=== PATIENT | female | born 1990 | race Caucasian/White ===

== ENCOUNTER 2017-04-10 07:34 | Day surgery (SDC) | payer OTHER ==
[~2017-04-10 07:34] MED LIST: Lactated Ringers 1,000 ML IV SCH; Lidocaine 1%/Sod Bicarbonate in NS 8.4% 1 ML Syringe IDERM PRN; Sodium Chloride 0.9% 10 ML Syringe FLUSH PRN
[2017-04-10] MEDS ORDERED: Lidocaine 1% with EPINEPHrine 1:100,000 20 ML MDV ONE (08:36)
[2017-04-10] MEDS ORDERED: Sodium Chloride 0.9% 50 ML SDV ONE (08:36)
--- NOTE | 2017-04-10 08:44 | PCM.PREANE ---
Preanesthetic Assessment - Anesthesia/Transfusion/Family Hx Anesthesia History: No Prior Anesthesia Family History of Anesthesia Reaction: No Transfusion History: No Prior Transfusion(s) - Review of Systems General: No Symptoms Pulmonary: No Symptoms Cardiovascular: No Symptoms Gastrointestinal: No Symptoms Neurological: No Symptoms Other: Reports: None - Physical Assessment NPO Status Date: 04/09/17 NPO Status Time: 21:00 Pulse: 74 O2 Sat by Pulse Oximetry: 100 Respiratory Rate: 16 Blood Pressure: 132/98 Temperature: 36.6 C Vital Signs: Last Vital Signs Temp 36.6 C 04/10/17 07:38 Pulse 74 04/10/17 07:38 Resp 16 04/10/17 07:38 BP 132/98 H 04/10/17 07:38 Pulse Ox 100 04/10/17 07:38 Height: 1.55 m Weight: 63.049 kg Mental Status: Alert & Oriented x3 Airway Class: Mallampati = 1 Dentition: Reports: Normal Dentition, Melstone(s), Implants (bottom right) Thyro-Mental Finger Breadths: 3 Mouth Opening Finger Breadths: 3 ROM/Head Extension: Full Lungs: Clear to Auscultation, Normal Respiratory Effort Cardiovascular: Regular Rate, Regular Rhythm, No Murmurs - Lab Values: Laboratory Last Values Urine HCG, Qual Negative (NEGATIVE) 04/10/17 07:40 - Allergies Allergies/Adverse Reactions: Allergies Allergy/AdvReac Type Severity Reaction Status Date / Time No Known Allergies Allergy Verified 04/10/17 08:18 - Blood Blood Available: No Product(s) Available: None - Anesthesia Plan Pre-Op Medication Ordered: None - Acknowledgements Anesthesia Type Planned: General Anesthesia Pt an Appropriate Candidate for the Planned Anesthesia: Yes Alternatives and Risks of Anesthesia Discussed w Pt/Guardian: Yes Pt/Guardian Understands and Agrees with Anesthesia Plan: Yes PreAnesthesia Questionnaire HEENT History: Reports: Allergic Rhinitis, Impaired Vision Cardiovascular History: Reports: None Respiratory History: Reports: None Gastrointestinal History: Reports: Other (See Below) Other Gastrointestinal History: nausea Genitourinary History: Reports: None 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) Other OB/BYN History: HSIL, severe dysplasia of cervix Musculoskeletal History: Reports: Other (See Below) Other Musculoskeletal History: body aches Neurological History: Reports: None Psychiatric History: Reports: None Endocrine/Metabolic History: Reports: None Hematologic History: Reports: None Immunologic History: Reports: None Oncologic (Cancer) History: Reports: None Dermatologic History: Reports: None - Past Surgical History HEENT Surgical History: Reports: None Cardiovascular Surgical History: Reports: None Respiratory Surgical History: Reports: None GI Surgical History: Reports: None Female Surgical History: Reports: None Male Surgical History: Reports: None Endocrine Surgical History: Reports: None Neurological Surgical History: Reports: None Musculoskeletal Surgical History: Reports: None Oncologic Surgical History: Reports: None Dermatological Surgical History: Reports: None - SUBSTANCE USE Smoking Status *Q: Never Smoker Tobacco Use Within Last Twelve Months: No Second Hand Smoke Exposure: No Days Per Week of Alcohol Use: 1 Number of Drinks Per Day: 1 Total Drinks Per Week: 1 Recreational Drug Use History: No - HOME MEDS Home Medications: Home Meds Cetirizine [ZyrTEC] 10 mg PO DAILY PRN 04/09/17 [History] Fluticasone Propionate [Flonase] 1 spray NASBOTH ASDIRECTED PRN 04/09/17 [ History] Vits #93/Iron Fum/FA [ Formula Tablet] 1 tab PO DAILY 04/09/17 [History] - CURRENT (IN HOUSE) MEDS Current Meds: Current Medications Lactated Ringer's (Ringers, Lactated) 1,000 mls @ 125 mls/hr IV ASDIRECTED ANTONIA Stop: 04/10/17 23:00 Last Admin: 04/10/17 08:01 Dose: 125 mls/hr Lidocaine/Sodium Bicarbonate (Buffered Lidocaine 1% In Ns 8.4%) 0.25 ml IDERM ONETIME PRN PRN Reason: Prior to IV Start Stop: 04/10/17 18:00 Last Admin: 04/10/17 07:58 Dose: 0.25 ml Sodium Chloride (Saline Flush) 10 ml FLUSH ASDIRECTED PRN PRN Reason: Keep Vein Open Stop: 04/10/17 18:00
[2017-04-10] MEDS ORDERED: Propofol 200 MG/20 ML SDV ONE (08:57)
[2017-04-10] MEDS ORDERED: Ondansetron 4 MG/2 ML SDV ONE (08:57)
[2017-04-10] MEDS ORDERED: fentaNYL 250 MCG/5 ML SDV ONE (08:58)
[2017-04-10] MEDS ORDERED: ceFAZolin 1 GM Vial ONE (08:58)
[2017-04-10] MEDS ORDERED: Lidocaine 1% 4 ML ONE (08:58)
[2017-04-10] MEDS ORDERED: Dexamethasone 4 MG/ML SDV ONE (09:27)
[2017-04-10] MEDS ORDERED: Ketorolac 30 MG/ML SDV ONE (09:32)
[2017-04-10] MEDS ORDERED: Lactated Ringers 1,000 ML ONE (09:43)
[2017-04-10] MEDS ORDERED: fentaNYL 100 MCG/2 ML SDV IVPUSH PRN (09:53)
--- NOTE | 2017-04-10 09:54 | PCM.OPNOTE ---
- General Post-Op/Procedure Note Date of Surgery/Procedure: 04/10/17 Operative Procedure(s): Conization of cervix with endocervical biopsy. Hysteroscopy with endometrial biopsy Pre Op Diagnosis: Severe dysplasia of the cervix ([id number]), HSIL Pap Post-Op Diagnosis: Same Anesthesia Technique: General ET Tube Primary Surgeon: Xavier Cárdenas Secondary Surgeon: Nathan Kelley Anesthesia Provider: Emre Aceves Body Joiner: Terence Walker Reason Body Joiner Was Necessary: Assist in surgery, retraction, decrease comorbidity and co-mortality Role of Body Joiner: Assist in surgery, retraction, decrease comorbidity and co-mortality Fluid Replacement, Intraop: 1,000 Output, Urine Amount: 0 EBL in mLs: 3 Drain/Tube Comments:: None Complications: None Condition: Good Free Text/Narrative:: Patient was transported to the operating room and placed in the low dorsal lithotomy position and prepared and draped in a sterile fashion. Timeout performed confirming name, date of and procedure. The cervix was injected with 20 mL of 0.25% lidocaine with epinephrine and multiple confluent areas around the cervix. Sutures were placed at 3:00 and 9:00 to help decrease bleeding utilizing 0 Vicryl. Lugol's staining of the cervix was performed. Utilizing #11 knife blade beginning at 12:00 and proceeding in a clockwise fashion the conization was performed with margins exterior to any decreased staining from Lugol's. The cone biopsy was removed and marked at 12:00 with a suture. Endocervical curettage was performed. All tissue sent to pathology for tissue evaluation. Hemostasis was obtained with electrocautery and application of Monsel's solution. The uterus was sounded to 8 cm dilated to accommodate the hysteroscope and hysteroscopy was performed. Image 001 shows a right tubal ostium image 002 shows the left tubal ostium image 003 shows tissue in the endometrial cavity and this was removed with the curettage. All tissue sent to pathology for tissue evaluation. Hysteroscopy after curettage showed no additional tissue in the endometrial cavity. No polyps, leiomyomata, adhesions or other abnormalities visualized with the hysteroscope. Sponge needle pack instrument count correct 2 and patient transported to postanesthesia care unit in satisfactory condition no blood transfusions required.
--- NOTE | 2017-04-10 09:55 | PCM.POSTAN ---
POST ANESTHESIA ASSESSMENT - MENTAL STATUS Mental Status: Somnolent - VITAL SIGNS Pulse Rate: 85 SaO2: 96 Resp Rate: 13 Blood Pressure: 100/44 Temperature: 37.0 C - RESPIRATORY Respiratory Status: Respiratory Rate WNL, Airway Patent, O2 Saturation Stable, Supplemental Oxygen - CARDIOVASCULAR CV Status: Pulse Rate WNL, Blood Pressure Stable - GASTROINTESTINAL GI Status: No Symptoms - PAIN Pain Score: 0 - POST OP HYDRATION Hydration Status: Adequate & Stable - OBSERVATIONS Free Text/Narrative:: no anesthesia complications noted
== END 2017-04-10 11:05 | disposition home or self-care (01) ==
LOC: JD.SDS 07:34
PROVIDERS: ATTEND Obstetrics & Gynecology
DX: N87.0 Mild cervical dysplasia (principal); N72 Inflammatory disease of cervix uteri; Z79.899 Other long term (current) drug therapy
CPT/HCPCS: 36415; 57522; 81025; 85025; 86850; 86900; 86901; J0690; J1100; J1885; J2405; J3010; J7120; J2704

== ENCOUNTER 2018-03-22 09:12 | Inpatient (IN) | payer OTHER ==
[2018-03-22] MEDS ORDERED: Sodium Chloride 0.9% 10 ML Syringe FLUSH PRN (19:38)
[2018-03-22] MEDS ORDERED: Oxytocin/Lactated Ringers 10 UNIT/1,000 ML BAG IV SCH (19:45)
[2018-03-22] MEDS ORDERED: Lactated Ringers 1,000 ML IV SCH (19:45)
--- NOTE | 2018-03-22 19:59 | PCM.LDHP ---
<Yves Gonzales - Last Filed: 03/22/18 19:27> L&D History of Present Illness - General Date of Service: 03/22/18 Admit Problem/Dx: Induction of Labor. Admission Diagnosis/Problem Admission Diagnosis/Problem 03/22/18 19:27 Source of Information: Patient History Limitations: Reports: No Limitations - History of Present Illness Introduction:: Mariama Gonzalez is a 28-year-old female, , 39 6/7 weeks gestation, dated by ultrasound 11/03/2017, who presents to Labor and Delivery for induction of Labor. Problem list includes prior cone of cervix 09/03/2017, Anemia affecting of 3rd trimester, severe dysplasia of cervix and history of HPV. Labs showed GBS Negative, no history of MRSA. She reports that movement is present, denies leakage of fluid, vaginal bleeding, headaches, visual changes, right upper quadrant pain, active HPV lesions, cough, NVD or urinary complaints. - Related Data Allergies/Adverse Reactions: Allergies Allergy/AdvReac Type Severity Reaction Status Date / Time No Known Allergies Allergy Verified 03/22/18 19:59 Home Medications: Home Meds Cetirizine [ZyrTEC] 10 mg PO DAILY PRN 04/09/17 [History] Fluticasone Propionate [Flonase] 1 spray NASBOTH ASDIRECTED PRN 04/09/17 [ History] Vits #93/Iron Fum/FA [ Formula Tablet] 1 tab PO DAILY 04/09/17 [History] Ibuprofen [Motrin] 600 mg PO Q6H PRN #50 tab 04/10/17 [Rx] Past Medical History HEENT History: Reports: Allergic Rhinitis, Impaired Vision Cardiovascular History: Reports: None Respiratory History: Reports: None Gastrointestinal History: Reports: None, Chronic Constipation, Other (See Below) Other Gastrointestinal History: nausea Genitourinary History: Reports: None 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 , Other (See Below) LMP (Approximate): Other OB/BYN History: HSIL, severe dysplasia of cervix, Prior cone or cervix Musculoskeletal History: Reports: Other (See Below) Other Musculoskeletal History: body aches Neurological History: Reports: None Psychiatric History: Reports: None Endocrine/Metabolic History: Reports: None Hematologic History: Reports: None Immunologic History: Reports: None Oncologic (Cancer) History: Reports: None Dermatologic History: Reports: None - Infectious Disease History Infectious Disease History: Reports: Human Papilloma Virus (HPV) - Past Surgical History HEENT Surgical History: Reports: None Cardiovascular Surgical History: Reports: None Respiratory Surgical History: Reports: None GI Surgical History: Reports: None Female Surgical History: Reports: None Male Surgical History: Reports: None Endocrine Surgical History: Reports: None Neurological Surgical History: Reports: None Musculoskeletal Surgical History: Reports: None Oncologic Surgical History: Reports: None Dermatological Surgical History: Reports: None Social & Family History - Family History Family Medical History: Noncontributory - Caffeine Use Caffeine Use: Reports: Coffee, Tea H&P Review of Systems - Review of Systems: General: Reports: No Symptoms, Chills. Denies: Fever HEENT: Reports: No Symptoms Pulmonary: Reports: No Symptoms. Denies: Shortness of Breath, Wheezing Cardiovascular: Reports: No Symptoms. Denies: Chest Pain Gastrointestinal: Reports: No Symptoms Genitourinary: Reports: No Symptoms Musculoskeletal: Reports: No Symptoms Skin: Reports: No Symptoms Psychiatric: Reports: No Symptoms Neurological: Reports: No Symptoms Hematologic/Lymphatic: Reports: No Symptoms Immunologic: Reports: No Symptoms L&D Exam - Exam Exam: See Below - OB Specific Movement: Active Heart Tones: Present Heart Tones per Min: 135 Heart Rate (FHR) Variability: Moderate (6-25 bmp) - Montano Score Montano Score Cervix Position: Posterior Montano Score Consistency: Firm Montano Score Effacement: 0-30% Montano Score Dilation: Closed Montano Score Infant's Station: -3 Montano Score Total: 0 - Exam General: Alert, Oriented, Cooperative HEENT: Conjunctiva Clear, Hearing Intact, Mucosa Moist & Mazie, Nares Patent, PERRLA Neck: Supple, Trachea Midline Lungs: Clear to Auscultation, Normal Respiratory Effort Cardiovascular: Regular Rate, Regular Rhythm GI/Abdominal Exam: Normal Bowel Sounds, Soft, Non-Tender Extremities: Normal Inspection, Normal Range of Motion, Non-Tender, No Pedal Edema, Normal Capillary Refill Skin: Warm, Dry, Intact Neurological: Normal Gait, Normal Speech Psychiatric: Alert, Normal Affect, Normal Mood <Xavier Cárdenas - Last Filed: 03/23/18 07:23> L&D History of Present Illness - General Admit Problem/Dx: Patient Status Order with Admit Dx/Problem 03/22/18 19:38 Patient Status [ADT] Routine Admission Diagnosis/Problem Admission Diagnosis/Problem H&P Review of Systems - Review of Systems: Review Of Systems: See Below General: Reports: No Symptoms, Chills (no chills) HEENT: Reports: No Symptoms Pulmonary: Reports: No Symptoms Cardiovascular: Reports: No Symptoms Gastrointestinal: Reports: No Symptoms Genitourinary: Reports: No Symptoms Musculoskeletal: Reports: No Symptoms Skin: Reports: No Symptoms Psychiatric: Reports: No Symptoms Neurological: Reports: No Symptoms Hematologic/Lymphatic: Reports: No Symptoms Immunologic: Reports: No Symptoms L&D Exam - Vital Signs Vital Signs: Last Vital Signs Temp 98.2 F 03/22/18 19:38 Pulse 88 03/22/18 19:38 Resp 16 03/22/18 19:38 BP 135/85 03/22/18 19:38 Pulse Ox 99 03/22/18 19:38 - OB Specific Movement: Active Heart Tones: Present Presentation: Vertex - Montano Score Montano Score Cervix Position: Posterior Montano Score Consistency: Soft Montano Score Effacement: 0-30% Montano Score Dilation: Closed Montano Score Infant's Station: -3 Montano Score Total: 2 - Exam General: Alert, Oriented, Cooperative HEENT: Conjunctiva Clear, Hearing Intact, Mucosa Moist & Mazie, Nares Patent Neck: Supple, Trachea Midline Lungs: Clear to Auscultation, Normal Respiratory Effort Cardiovascular: Regular Rate, Regular Rhythm GI/Abdominal Exam: Normal Bowel Sounds, Soft, Non-Tender Genitourinary: Normal external exam Extremities: Normal Inspection, Normal Range of Motion, Non-Tender, No Pedal Edema, Normal Capillary Refill Skin: Warm, Dry, Intact Neurological: Normal Gait, Normal Speech Psychiatric: Alert, Normal Affect, Normal Mood - Patient Data Lab Results Last 24 hrs: Laboratory Results - last 24 hr 03/22/18 03/22/18 Range/Units 22:00 22:00 WBC 10.97 H (3.98-10.04) K/mm3 RBC 3.86 L (3.98-5.22) M/mm3 Hgb 11.2 (11.2-15.7) gm/L Hct 33.1 L (34.1-44.9) % MCV 85.8 (79.4-94.8) fl MCH 29.0 (25.6-32.2) pg MCHC 33.8 (32.2-35.5) g/dl RDW Std Deviation 42.8 (36.4-46.3) fL Plt Count 157 L (182-369) K/mm3 MPV 10.2 (9.4-12.3) fl Blood Type A POSITIVE Gel Antibody Screen Negative Result Diagrams: 03/22/18 22:00 - Problem List (1) 40 weeks gestation of SNOMED Code(s): 89621514 ICD Code: Z3A.40 - 40 WEEKS GESTATION OF Status: Acute Current Visit: Yes Problem List Initiated/Reviewed/Updated: No Orders Last 24hrs: Active Orders 24 hr Category Date Time Status Patient Status [ADT] Routine ADT 03/22/18 19:38 Active Communication Order [RC] ASDIRECTED Care 03/22/18 19:38 Active Communication Order [RC] ASDIRECTED Care 03/22/18 19:38 Active Communication Order [RC] ASDIRECTED Care 03/22/18 19:38 Active Communication Order [RC] ASDIRECTED Care 03/22/18 22:14 Active Notify Provider [RC] ASDIRECTED Care 03/22/18 19:38 Active Notify Provider [RC] ASDIRECTED Care 03/22/18 22:14 Active Peripheral IV Care [RC] . DIRECTED Care 03/22/18 19:39 Active Vital Signs [RC] ASDIRECTED Care 03/22/18 19:38 Active RAPID PLASMA REAGIN,RPR [CHEM] Routine Lab 03/22/18 22:00 Received Lactated Ringers [Ringers, Lactated] 1,000 ml Med 03/22/18 19:45 Active IV ASDIRECTED Oxytocin/Lactated Ringers [Pitocin in LR 10 Units/1,000 Med 03/22/18 19:45 Active ML] 10 unit in 1,000 ml IV TITRATE Sodium Chloride 0.9% [Saline Flush] Med 03/22/18 19:38 Active 10 ml FLUSH ASDIRECTED PRN diphenhydrAMINE [Benadryl] Med 03/22/18 22:14 Active 25 mg IVPUSH Q6H PRN ePHEDrine [ePHEDrine sulfate] Med 03/22/18 22:14 Active 5 mg IVPUSH ASDIRECTED PRN fentaNYL [Sublimaze] Med 03/22/18 22:14 Active 100 mcg EPIDUR Q3H PRN fentaNYL/Bupivacaine/NS/PF [qdnamVDU-Sskgf-PV 2 MCG/ML- Med 03/22/18 22:15 Active 0.125%] 100 ml EP ASDIRECTED miSOPROStol [Cytotec] Med 03/23/18 00:30 Active 50 mcg VAG Q4H PRN Peripheral IV Insertion Adult [OM.PC] Routine Oth 03/22/18 19:38 Ordered Medication Orders Diphenhydramine HCl (Benadryl) 25 mg IVPUSH Q6H PRN PRN Reason: Itching Ephedrine Sulfate (Ephedrine Sulfate) 5 mg IVPUSH ASDIRECTED PRN PRN Reason: HYPOTENTSION Fentanyl (Sublimaze) 100 mcg EPIDUR Q3H PRN PRN Reason: Pain Fentanyl/Bupivacaine HCl (Etabmuns-Hdovj-Vf 2 Mcg/Ml-0.125%) 100 ml EP ASDIRECTED ANTONIA Lactated Ringer's (Ringers, Lactated) 1,000 mls @ 40 mls/hr IV ASDIRECTED ANTONIA Oxytocin/Lactated Ringer's (Pitocin In Lr 10 Units/1,000 Ml) 10 unit in 1,000 mls @ 12 mls/hr IV TITRATE ANTONIA; Protocol Misoprostol (Cytotec) 50 mcg VAG Q4H PRN PRN Reason: cervical ripening Last Admin: 03/23/18 04:39 Dose: 50 mcg Admin: 03/23/18 00:35 Dose: 50 mcg Sodium Chloride (Saline Flush) 10 ml FLUSH ASDIRECTED PRN PRN Reason: Keep Vein Open Assessment/Plan Comment:: Plan induction and delivery. Patient seen and examined and discussed with student.
[2018-03-22] MEDS ORDERED: Misoprostol 25 MCG (1/4 of 100 MCG) Tab VAG ONE (20:00)
[2018-03-22] MEDS ORDERED: diphenhydrAMINE 50 MG/ML SDV IVPUSH PRN (22:14)
[2018-03-22] MEDS ORDERED: fentaNYL 100 MCG/2 ML SDV EPIDUR PRN (22:14)
[2018-03-22] MEDS ORDERED: ePHEDrine 50 MG/ML SDV IVPUSH PRN (22:14)
[2018-03-22] MEDS ORDERED: fentaNYL/Bupivacaine-NS 2 MCG/ML-0.125%/PF 100 ML Bag EP SCH (22:15)
[2018-03-22] MEDS ORDERED: Misoprostol 100 MCG Tab VAG PRN (23:00)
[2018-03-23] MEDS ORDERED: Misoprostol 25 MCG (1/4 of 100 MCG) Tab VAG PRN (00:28)
[2018-03-23] MEDS: Misoprostol 25 MCG (1/4 of 100 MCG) Tab VAG PRN ×2 (00:35→04:39)
--- NOTE | 2018-03-23 07:38 | PCM.SN ---
- Free Text/Narrative Note: Breech presentation confirmed by bedside ultrasound discussed alternatives of external version attempt versus section. Patient and agreed to having Dr. Oliva attempt external version understanding possible, occasions including cord entanglement, abruptio placentae other complications and emergency section. If external version is unsuccessful we will then planned section. Cervix is 2 cm dilated 50% effaced.
[2018-03-23] MEDS ORDERED: Terbutaline 1 MG/ML SDV ONE (07:55)
--- NOTE | 2018-03-23 07:58 | PCM.PREANE ---
Preanesthetic Assessment - Anesthesia/Transfusion/Family Hx Anesthesia History: Prior Anesthesia Without Reaction Family History of Anesthesia Reaction: No Transfusion History: No Prior Transfusion(s) - Review of Systems General: No Symptoms Pulmonary: No Symptoms Cardiovascular: No Symptoms Gastrointestinal: No Symptoms Neurological: No Symptoms Other: Reports: Sinus Problem (Rhinitis/Hay Fever ) - Physical Assessment NPO Status Date: 03/23/18 NPO Status Time: 07:00 (Water, yesterday 1830 solids) O2 Sat by Pulse Oximetry: 99 Respiratory Rate: 16 Vital Signs: Last Vital Signs Temp 36.8 C 03/22/18 19:38 Pulse 88 03/22/18 19:38 Resp 16 03/22/18 19:38 BP 135/85 03/22/18 19:38 Pulse Ox 99 03/22/18 19:38 Height: 1.57 m Weight: 85.003 kg ASA Class: 2 Mental Status: Alert & Oriented x3 Airway Class: Mallampati = 1 Dentition: Reports: Rotan(s), Implants ( Filling missing on bottom right.) Thyro-Mental Finger Breadths: 3 Mouth Opening Finger Breadths: 3 ROM/Head Extension: Full Lungs: Clear to Auscultation, Normal Respiratory Effort Cardiovascular: Regular Rate, Regular Rhythm - Lab Values: Laboratory Last Values WBC 10.97 K/mm3 (3.98-10.04) H 03/22/18 22:00 RBC 3.86 M/mm3 (3.98-5.22) L 03/22/18 22:00 Hgb 11.2 gm/L (11.2-15.7) 03/22/18 22:00 Hct 33.1 % (34.1-44.9) L 03/22/18 22:00 MCV 85.8 fl (79.4-94.8) 03/22/18 22:00 MCH 29.0 pg (25.6-32.2) 03/22/18 22:00 MCHC 33.8 g/dl (32.2-35.5) 03/22/18 22:00 RDW Std Deviation 42.8 fL (36.4-46.3) 03/22/18 22:00 Plt Count 157 K/mm3 (182-369) L 03/22/18 22:00 MPV 10.2 fl (9.4-12.3) 03/22/18 22:00 Blood Type A POSITIVE 03/22/18 22:00 Gel Antibody Screen Negative 03/22/18 22:00 - Allergies Allergies/Adverse Reactions: Allergies Allergy/AdvReac Type Severity Reaction Status Date / Time No Known Allergies Allergy Verified 03/22/18 19:59 - Acknowledgements Anesthesia Type Planned: Spinal Pt an Appropriate Candidate for the Planned Anesthesia: Yes Alternatives and Risks of Anesthesia Discussed w Pt/Guardian: Yes Pt/Guardian Understands and Agrees with Anesthesia Plan: Yes PreAnesthesia Questionnaire - Past Health History Medical/Surgical History: Denies Medical/Surgical History HEENT History: Reports: Allergic Rhinitis, Impaired Vision Cardiovascular History: Reports: None Respiratory History: Reports: None Gastrointestinal History: Reports: None, Chronic Constipation, Other (See Below) Other Gastrointestinal History: nausea Genitourinary History: Reports: None 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 , Other (See Below) Other OB/BYN History: HSIL, severe dysplasia of cervix, Prior cone or cervix Musculoskeletal History: Reports: Other (See Below) Other Musculoskeletal History: body aches Neurological History: Reports: None Psychiatric History: Reports: None Endocrine/Metabolic History: Reports: None Hematologic History: Reports: None Immunologic History: Reports: None Oncologic (Cancer) History: Reports: None Dermatologic History: Reports: None - Infectious Disease History Infectious Disease History: Reports: Human Papilloma Virus (HPV) - Past Surgical History HEENT Surgical History: Reports: None Cardiovascular Surgical History: Reports: None Respiratory Surgical History: Reports: None GI Surgical History: Reports: None Female Surgical History: Reports: None Male Surgical History: Reports: None Endocrine Surgical History: Reports: None Neurological Surgical History: Reports: None Musculoskeletal Surgical History: Reports: None Oncologic Surgical History: Reports: None Dermatological Surgical History: Reports: None - SUBSTANCE USE Smoking Status *Q: Never Smoker Second Hand Smoke Exposure: No Recreational Drug Use History: No - HOME MEDS Home Medications: Home Meds Cetirizine [ZyrTEC] 10 mg PO DAILY PRN 04/09/17 [History] Fluticasone Propionate [Flonase] 1 spray NASBOTH ASDIRECTED PRN 04/09/17 [ History] Vits #93/Iron Fum/FA [ Formula Tablet] 1 tab PO DAILY 04/09/17 [History] Ibuprofen [Motrin] 600 mg PO Q6H PRN #50 tab 04/10/17 [Rx] - CURRENT (IN HOUSE) MEDS Current Meds: Current Medications Diphenhydramine HCl (Benadryl) 25 mg IVPUSH Q6H PRN PRN Reason: Itching Ephedrine Sulfate (Ephedrine Sulfate) 5 mg IVPUSH ASDIRECTED PRN PRN Reason: HYPOTENTSION Fentanyl (Sublimaze) 100 mcg EPIDUR Q3H PRN PRN Reason: Pain Fentanyl/Bupivacaine HCl (Sjrmprwz-Fauig-Lw 2 Mcg/Ml-0.125%) 100 ml EP ASDIRECTED ANTONIA Lactated Ringer's (Ringers, Lactated) 1,000 mls @ 40 mls/hr IV ASDIRECTED ANTONIA Oxytocin/Lactated Ringer's (Pitocin In Lr 10 Units/1,000 Ml) 10 unit in 1,000 mls @ 12 mls/hr IV TITRATE ANTONIA; Protocol Misoprostol (Cytotec) 50 mcg VAG Q4H PRN PRN Reason: cervical ripening Last Admin: 03/23/18 04:39 Dose: 50 mcg Sodium Chloride (Saline Flush) 10 ml FLUSH ASDIRECTED PRN PRN Reason: Keep Vein Open Discontinued Medications Misoprostol (Cytotec) 25 mcg VAG ONETIME ONE Stop: 03/22/18 20:01 Last Admin: 03/22/18 20:12 Dose: 25 mcg Misoprostol (Cytotec) 50 mcg VAG Q4H PRN PRN Reason: cervical ripening Misoprostol (Cytotec) 50 mcg VAG Q4H PRN PRN Reason: cervical ripening
[2018-03-23] MEDS ORDERED: Bupivacaine 0.5% 30 ML SDV ONE (08:19)
--- NOTE | 2018-03-23 08:20 | PCM.SN ---
- Free Text/Narrative Note: Dr. Oliva attempted external version unsuccessful we will proceed with section.
[2018-03-23] MEDS ORDERED: Ketorolac 30 MG/ML SDV ONE (08:21)
[2018-03-23] MEDS ORDERED: Ondansetron 4 MG/2 ML SDV ONE (08:21)
[2018-03-23] MEDS ORDERED: Metoclopramide 10 MG/2 ML SDV IVPUSH ONE (08:21)
[2018-03-23] MEDS ORDERED: Oxytocin 10 Units/1 ML SDV ONE (08:21)
[2018-03-23] MEDS ORDERED: Lactated Ringers 2,000 ML ONE (08:21)
[2018-03-23] MEDS ORDERED: ceFAZolin 1 GM Vial ONE (08:21)
[2018-03-23] MEDS ORDERED: Citric Acid/Sodium Citrate Solution 30 ML Cup PO ONE (08:22)
[2018-03-23] MEDS ORDERED: ceFAZolin 2 GM in Premix Bag 1 BAG IV ONE (08:23)
[2018-03-23] MEDS ORDERED: Metoclopramide 10 MG/2 ML SDV ONE (08:27)
[2018-03-23] MEDS ORDERED: Citric Acid/Sodium Citrate Solution 30 ML Cup ONE (08:27)
[2018-03-23] MEDS ORDERED: Morphine PF 1 MG/ML Amp ONE (08:27)
[2018-03-23] MEDS ORDERED: Oxytocin/Lactated Ringers 20 UNIT/1,000 ML BAG IV SCH (08:30)
--- NOTE | 2018-03-23 08:32 | PCM.OPNOTE ---
- General Post-Op/Procedure Note Date of Surgery/Procedure: 03/23/18 Operative Procedure(s): Attempted external cephalic version, unsuccessful Findings: Infant in complete breech position with spine along maternal left side of the abdomen and had been right upper quadrant of the uterus. Minimal amount of fluid around the . Pre Op Diagnosis: Complete breech position desires attempt of external cephalic version Post-Op Diagnosis: Attempted external cephalic version that was unsuccessful, plan for primary section Primary Surgeon: Micheal Oliva Pathology: None Fluid Replacement, Intraop: 0 Output, Urine Amount: 0 EBL in mLs: 0 Complications: None Condition: Good Free Text/Narrative:: Procedure in detail: Patient was seen on labor and delivery in room #29 (L&D room #1) after her initial provider checked her and was found to be in breech position. He had confirmed this with use of ultrasound. On my exam, ultrasound was then again completed and was found to be in complete breech position with pelvis Lowe in the maternal pelvis with spine facing up and to the maternal left and had in the upper right quadrant of the uterus. There is minimal amount of fluid noted. Patient had had a reactive NST prior to the procedure. Reviewed the risks, benefits and alternatives of the procedure and consents were signed for external cephalic version and possible section. Patient was laid in dorsal supine position. The heart was evaluated and noted to have a normal heart rate in the 130s. Attempt was then made to lift the pelvis out of the maternal pelvis and apply pressure to the head to turn the in a counterclockwise forward somersault fashion. This was attempted for approximately 1-1.5 minutes with minimal success. The heart was then evaluated and noted to have good heart tones in the 120s to 130s. Attempt was then made for a reverse somersault in a clockwise fashion by again lifting the pelvis out of the maternal pelvis and applying pressure on the head. This is again attempted for approximately 1-1.5 minutes. The head was able to be moved to the left uterine fundus. The heart was evaluated and noted to be in the 90s to 100s and was allowed to recover for approximately 1 minute. Attempt was then made for a counterclockwise forward somersault roll by lifting the pelvis out of the maternal pelvis and applying pressure to the head. This was attempted over 3 separate attempts with 1-1.5 minutes for each attempt. After each attempts the heart was evaluated and noted to be within normal limits in the 120s to 130s. After approximately 10-15 minutes of attempted version discussion was had with patient regarding unlikelihood of success and she desired to stop the external cephalic version and proceed with primary section. Patient was prepped for section. Please see that note for full procedure. Micheal Oliva M.D. 8:32 AM 03/23/2018
[2018-03-23] MEDS ORDERED: Phenylephrine/Normal Saline 100 MCG/ML 10 ML Syringe ONE (09:32)
[2018-03-23] MEDS ORDERED: ePHEDrine 50 MG/ML SDV IVPUSH PRN ×2 (09:38→10:56)
[2018-03-23] MEDS ORDERED: diphenhydrAMINE 50 MG/ML SDV IVPUSH PRN ×2 (09:38→10:56)
[2018-03-23] MEDS ORDERED: Nalbuphine 20 MG/ML 1 ML Syringe IVPUSH PRN (09:38)
[2018-03-23] MEDS ORDERED: Ondansetron 4 MG/2 ML SDV IVPUSH PRN (09:38)
[2018-03-23] MEDS ORDERED: Meperidine 50 MG/ML Vial IVPUSH PRN (09:38)
--- NOTE | 2018-03-23 09:53 | PCM.POSTAN ---
POST ANESTHESIA ASSESSMENT - MENTAL STATUS Mental Status: Alert, Oriented - VITAL SIGNS Pulse Rate: 84 SaO2: 100 Resp Rate: 14 Blood Pressure: 106/73 Temperature: 98.6 C - RESPIRATORY Respiratory Status: Respiratory Rate WNL, Airway Patent, O2 Saturation Stable - CARDIOVASCULAR CV Status: Pulse Rate WNL, Blood Pressure Stable - GASTROINTESTINAL GI Status: No Symptoms - PAIN Pain Score: 0 - POST OP HYDRATION Hydration Status: Adequate & Stable
--- NOTE | 2018-03-23 09:56 | PCM.OPNOTE ---
- General Post-Op/Procedure Note Date of Surgery/Procedure: 03/23/18 Operative Procedure(s): Primary low segment transverse Pre Op Diagnosis: Breech presentation attempted external version is not successful Post-Op Diagnosis: Same Anesthesia Technique: Spinal Primary Surgeon: Xavier Cárdenas Secondary Surgeon: Micheal Oliva Anesthesia Provider: Jessie Vásquez Trauma Doctor: Yves Gonzales (PAS) Reason Trauma Doctor Was Necessary: Assist with surgery and delivery, decrease comorbidity and mortality. Role of Trauma Doctor: Assist with surgery and delivery, decrease comorbidity and mortality. Fluid Replacement, Intraop: 2,000 Output, Urine Amount: 100 EBL in mLs: 250 Drain/Tube Comments:: Masters Complications: None Condition: Good Free Text/Narrative:: Intake & Output 03/22/18 03/23/18 03/23/18 22:59 06:59 14:59 Intake Total 0 Output Total 0 Balance 0 Patient was transported to the operating room and placed under spinal anesthesia in supine position with wedge under right hip and right flank. SCDs in place and functioning prior surgery. 2 g of Ancef given intravenously prior surgery. Timeout performed. Patient was paired and draped in a sterile fashion. Adequate level of anesthesia was confirmed. Patient's was brought to the operating room. A low segment transverse was performed with the Pfannenstiel incision carried sharp section to into the anterior fascia peritoneal cavity was entered without difficulty bladder flap created pushed caudad low segment transverse performed. Breech presentation was delivered left sacrum anterior care for delivering the lower extremities flexing as needed and the upper extremities was then delivered left followed by right upper extremity and the head was delivered without difficulty. The female liveborn delivered at 0912 hrs. on Thursday03/23/18 Apgars 9/[address] Hagen cared for the . Weight 3400 g 7 lbs. 8 oz. Cord blood was collected from the three-vessel cord placenta was removed manually endometrial cavity inspected remnants of membranes removed cervical patency assured and the sponge needle pack instrument count correct times one and the uterine incision closed with running locking suture of 0 Monocryl. Second layer closure with 0 Monocryl modified Lembert horizontal imbricating suture. Sponge needle pack instrument count correct 2 both tubes and ovaries were normal clot screen from the gutters and cul-de-sac, uterus placed into the abdominal cavity. Abdominal cavity closed in layers with #1 PDS for the anterior fascia. The subcutaneous tissue approximated with 0 Monocryl times 3 interrupted sutures and the skin was closed with subcuticular suture of 4-0 Monocryl Nikita needle. Dermabond Preneo applied. Clots cleaned from the vagina at the end procedure. No blood transfusions required not anticipated. Patient transported postanesthesia care unit in satisfactory condition.
[2018-03-23] MEDS ORDERED: Acetaminophen/oxyCODONE 325-5 MG Tab PO PRN (10:56)
[2018-03-23] MEDS ORDERED: Sodium Chloride 0.9% 10 ML Syringe FLUSH PRN (10:56)
[2018-03-23] MEDS ORDERED: Acetaminophen 325 MG Tab PO PRN (10:56)
[2018-03-23] MEDS ORDERED: Dextrose 5%-Lactated Ringers 1,000 ML IV SCH (10:56)
[2018-03-23] MEDS ORDERED: FLUTICASONE PROPIONATE NASBOTH PRN (10:56)
[2018-03-23] MEDS ORDERED: Loratadine 10 MG Tab PO PRN (10:56)
[2018-03-23] MEDS ORDERED: Lanolin 100% Cream 7 GM Tube TOP PRN (10:56)
[2018-03-23] MEDS ORDERED: Docusate Sodium 100 MG Cap PO PRN (10:56)
[2018-03-23] MEDS ORDERED: Naloxone 0.4 MG/ML SDV IVPUSH PRN (10:56)
[2018-03-23] MEDS ORDERED: Ondansetron 4 MG/2 ML SDV IV PRN (10:56)
[2018-03-23] MEDS: Ketorolac 30 MG/ML SDV IVPUSH SCH ×2 (16:03→23:00)
[2018-03-24] MEDS: Ketorolac 30 MG/ML SDV IVPUSH SCH (04:20)
--- NOTE | 2018-03-24 08:09 | PCM.PN ---
- General Info Date of Service: 03/24/18 Functional Status: Reports: Pain Controlled - Review of Systems General: Reports: No Symptoms HEENT: Reports: No Symptoms Pulmonary: Reports: No Symptoms Cardiovascular: Reports: No Symptoms Gastrointestinal: Reports: No Symptoms Genitourinary: Reports: No Symptoms Musculoskeletal: Reports: No Symptoms Skin: Reports: No Symptoms Neurological: Reports: No Symptoms Psychiatric: Reports: No Symptoms - Patient Data Vitals - Most Recent: Last Vital Signs Temp 98.2 F 03/24/18 04:17 Pulse 74 03/24/18 04:17 Resp 16 03/24/18 06:48 BP 130/81 03/24/18 04:17 Pulse Ox 99 03/24/18 06:48 Weight - Most Recent: 187 lb 6.4 oz I&O - Last 24 Hours: Intake & Output 03/23/18 03/24/18 03/24/18 22:59 06:59 14:59 Output Total 2350 1450 Balance -2350 -1450 Lab Results Last 24 Hours: Laboratory Results - last 24 hr 03/22/18 03/24/18 Range/Units 22:00 06:14 WBC 10.04 (3.98-10.04) K/mm3 RBC 3.44 L (3.98-5.22) M/mm3 Hgb 9.9 L (11.2-15.7) gm/L Hct 30.1 L (34.1-44.9) % MCV 87.5 (79.4-94.8) fl MCH 28.8 (25.6-32.2) pg MCHC 32.9 (32.2-35.5) g/dl RDW Std Deviation 44.2 (36.4-46.3) fL Plt Count 127 L (182-369) K/mm3 MPV 10.7 (9.4-12.3) fl Neut % (Auto) 77.7 H (34.0-71.1) % Lymph % (Auto) 14.1 L (19.3-51.7) % Stone % (Auto) 6.7 (4.7-12.5) % Eos % (Auto) 1.0 (0.7-5.8) Baso % (Auto) 0.2 (0.1-1.2) % Neut # (Auto) 7.80 H (1.56-6.13) K/mm3 Lymph # (Auto) 1.42 (1.18-3.74) K/mm3 Stone # (Auto) 0.67 H (0.24-0.36) K/mm3 Eos # (Auto) 0.10 (0.04-0.36) K/mm3 Baso # (Auto) 0.02 (0.01-0.08) K/mm3 RPR Non-reactive (NONREACTIVE) Med Orders - Current: Current Medications Acetaminophen (Tylenol) 650 mg PO Q4H PRN PRN Reason: mild pain or fever Diphenhydramine HCl (Benadryl) 25 mg IVPUSH Q6H PRN PRN Reason: Itching or Nausea Docusate Sodium (Colace) 100 mg PO Q12H PRN PRN Reason: Constipation Emollient Ointment (Lansinoh Hpa) 0 gm TOP ASDIRECTED PRN PRN Reason: Sore Nipples Ephedrine Sulfate (Ephedrine Sulfate) 5 mg IVPUSH SEECOMMENT PRN PRN Reason: Other Ibuprofen (Motrin) 600 mg PO Q6H PRN PRN Reason: mild pain or fever Loratadine (Claritin) 10 mg PO DAILY PRN PRN Reason: allergic rhinitis Naloxone HCl (Narcan) 0.1 mg IVPUSH SEECOMMENT PRN PRN Reason: Respiratory Depression Ondansetron HCl (Zofran) 4 mg IV Q8H PRN PRN Reason: Nausea/Vomiting Oxycodone/Acetaminophen (Percocet 325-5 Mg) 1 tab PO Q4H PRN PRN Reason: Pain (moderate 4-6) Fluticasone Propionate 1 [place] * *Ptom 0 each NASBOTH DAILY PRN PRN Reason: allergic rhinitis Prenat Multivit/[place]/Iron/Folic Ac ( Plus Iron) 1 each PO DAILY ANTONIA Sodium Chloride (Saline Flush) 10 ml FLUSH ASDIRECTED PRN PRN Reason: Keep Vein Open Discontinued Medications Bupivacaine HCl (Marcaine 0.5%) Confirm Administered Dose 30 ml .ROUTE .STK-MED ONE Stop: 03/23/18 08:20 Last Admin: 03/23/18 09:08 Dose: 20 ml Cefazolin Sodium (Ancef) Confirm Administered Dose 2 gm .ROUTE .STK-MED ONE Stop: 03/23/18 08:22 Citric Acid/Sodium Citrate (Bicitra Solution) 30 ml PO ONETIME ONE Stop: 03/23/18 08:23 Last Admin: 03/23/18 08:30 Dose: 30 ml Citric Acid/Sodium Citrate (Bicitra Solution) Confirm Administered Dose 30 ml .ROUTE .[facility] ONE Stop: 03/23/18 08:28 Last Admin: 03/23/18 11:29 Dose: Not Given Diphenhydramine HCl (Benadryl) 25 mg IVPUSH Q6H PRN PRN Reason: Itching Diphenhydramine HCl (Benadryl) 25 mg IVPUSH Q6H PRN PRN Reason: Pruritis Stop: 03/23/18 11:30 Ephedrine Sulfate (Ephedrine Sulfate) 5 mg IVPUSH ASDIRECTED PRN PRN Reason: HYPOTENTSION Ephedrine Sulfate (Ephedrine Sulfate) 5 mg IVPUSH ASDIRECTED PRN PRN Reason: Hypotension Stop: 03/23/18 11:30 Fentanyl (Sublimaze) 100 mcg EPIDUR Q3H PRN PRN Reason: Pain Fentanyl/Bupivacaine HCl (Mvxkfltb-[place]-Ar 2 Mcg/Ml-0.125%) 100 ml EP ASDIRECTED ANTONIA Lactated Ringer's (Ringers, Lactated) 1,000 mls @ 40 mls/hr IV ASDIRECTED ANTONIA Oxytocin/Lactated Ringer's (Pitocin In Lr 10 Units/1,000 Ml) 10 unit in 1,000 mls @ 12 mls/hr IV TITRATE ANTONIA; Protocol Lactated Ringer's (Ringers, Lactated) Confirm Administered Dose 2,000 mls @ as directed .ROUTE .[facility] ONE Stop: 03/23/18 08:22 Cefazolin Sodium/Dextrose 2 gm (/ Premix) 50 mls @ 100 mls/hr IV ONETIME ONE Stop: 03/23/18 08:52 Last Admin: 03/23/18 11:29 Dose: Not Given Oxytocin/Lactated Ringer's (Pitocin In Lr 20 Units/1,000 Ml) 20 unit in 1,000 mls @ 1,500 mls/hr IV ASDIRECTED ANTONIA Dextrose/Lactated Ringer's (Dextrose 5%-Lactated Ringers) 1,000 mls @ 125 mls/ hr IV ASDIRECTED ANTONIA Stop: 03/23/18 18:55 Last Admin: 03/23/18 12:17 Dose: 125 mls/hr Ketorolac Tromethamine (Toradol) Confirm Administered Dose 30 mg .ROUTE .STK- MED ONE Stop: 03/23/18 08:22 Ketorolac Tromethamine (Toradol) 30 mg IVPUSH Q6H [facility] Stop: 03/24/18 04:01 Last Admin: 03/24/18 04:20 Dose: 30 mg Meperidine HCl (Meperidine) 12.5 mg IVPUSH ONETIME PRN PRN Reason: Shivering Stop: 03/23/18 11:30 Metoclopramide HCl (Reglan) 10 mg IVPUSH ONETIME ONE Stop: 03/23/18 08:22 Last Admin: 03/23/18 08:30 Dose: 10 mg Metoclopramide HCl (Reglan) Confirm Administered Dose 10 mg .ROUTE .STK-MED ONE Stop: 03/23/18 08:28 Last Admin: 03/23/18 11:29 Dose: Not Given Misoprostol (Cytotec) 25 mcg VAG ONETIME ONE Stop: 03/22/18 20:01 Last Admin: 03/22/18 20:12 Dose: 25 mcg Misoprostol (Cytotec) 50 mcg VAG Q4H PRN PRN Reason: cervical ripening Misoprostol (Cytotec) 50 mcg VAG Q4H PRN PRN Reason: cervical ripening Misoprostol (Cytotec) 50 mcg VAG Q4H PRN PRN Reason: cervical ripening Last Admin: 03/23/18 04:39 Dose: 50 mcg Morphine Sulfate (Duramorph Pf) Confirm Administered Dose 1 mg .ROUTE .STK-MED ONE Stop: 03/23/18 08:28 Nalbuphine HCl (Nubain) 5 mg IVPUSH ONETIME PRN PRN Reason: Puritis Stop: 03/23/18 11:30 Ondansetron HCl (Zofran) Confirm Administered Dose 4 mg .ROUTE .STK-MED ONE Stop: 03/23/18 08:22 Ondansetron HCl (Zofran) 4 mg IVPUSH ONETIME PRN PRN Reason: Nausea/Vomiting Stop: 03/23/18 11:30 Oxytocin (Pitocin) Confirm Administered Dose 20 unit .ROUTE .STK-MED ONE Stop: 03/23/18 08:22 Phenylephrine HCl (Phenylephrine In Ns 100 Mcg/Ml) Confirm Administered Dose 1 mg .ROUTE .STK-MED ONE Stop: 03/23/18 09:33 Sodium Chloride (Saline Flush) 10 ml FLUSH ASDIRECTED PRN PRN Reason: Keep Vein Open Terbutaline Sulfate (Brethine) Confirm Administered Dose 1 mg .ROUTE .STK-MED ONE Stop: 03/23/18 07:56 Last Admin: 03/23/18 07:59 Dose: 1 mg - Exam General: Alert, Oriented HEENT: Pupils Equal, Mucous Membr. Moist/[place] Neck: Supple Lungs: Clear to Auscultation, Normal Respiratory Effort Cardiovascular: Regular Rate, Regular Rhythm GI/Abdominal Exam: Soft, Non-Tender, Other (uterus at u-3, incision normal) Extremities: Normal Inspection, Non-Tender, No Pedal Edema, Normal Capillary Refill Skin: Warm, Dry, Intact Wound/Incisions: Healing Well Psy/Mental Status: Alert, Normal Affect, Normal Mood - Problem List & Annotations (1) 40 weeks gestation of SNOMED Code(s): 14062876 Code(s): Z3A.40 - 40 WEEKS GESTATION OF Status: Acute Current Visit: Yes (2) delivery indicated due to breech presentation SNOMED Code(s): 794473042, 251323838 Code(s): O32.1XX0 - MATERNAL CARE FOR BREECH PRESENTATION, UNSP Status: Acute Current Visit: Yes (3) Breech presentation SNOMED Code(s): 2435950 Code(s): O32.1XX0 - MATERNAL CARE FOR BREECH PRESENTATION, UNSP Status: Acute Current Visit: Yes Qualifiers: Fetus number: single or unspecified fetus Qualified Code(s): O32.1XX0 - Maternal care for breech presentation, not applicable or unspecified - Problem List Review Problem List Initiated/Reviewed/Updated: No - My Orders Last 24 Hours: My Active Orders 03/23/18 09:58 Resuscitation Status Routine 03/23/18 10:56 Activity as Tolerated [RC] .Routine Ambulate [RC] PER UNIT ROUTINE Antiembolic Devices [RC] PER UNIT ROUTINE Communication Order [RC] PER UNIT ROUTINE Communication Order [RC] PER UNIT ROUTINE Communication Order [RC] PER UNIT ROUTINE Intake and Output [RC] Q4HR May Shower [RC] PER UNIT ROUTINE Notify Provider Intake and Out [RC] ASDIRECTED RT Incentive Spirometry [RC] Q1HWA Vital Signs [RC] Q1HR Acetaminophen [Tylenol] 650 mg PO Q4H PRN Acetaminophen/oxyCODONE [Percocet 325-5 MG] 1 tab PO Q4H PRN Docusate Sodium [Colace] 100 mg PO Q12H PRN Lanolin [Lansinoh HPA] See Dose Instructions TOP ASDIRECTED PRN Loratadine [Claritin] 10 mg PO DAILY PRN Naloxone [Narcan] 0.1 mg IVPUSH SEECOMMENT PRN Ondansetron [Zofran] 4 mg IV Q8H PRN Patient's Own Medication [Ptom] 0 each NASBOTH DAILY PRN Sodium Chloride 0.9% [Saline Flush] 10 ml FLUSH ASDIRECTED PRN diphenhydrAMINE [Benadryl] 25 mg IVPUSH Q6H PRN ePHEDrine [ePHEDrine sulfate] 5 mg IVPUSH SEECOMMENT PRN Abdominal Binder [OM.PC] Per Unit Routine Assess Lochia [WOMSER] Per Unit Routine Assess Uterine Involution [WOMSER] Per Unit Routine Breast Pump [WOMSER] Per Unit Routine Convert IV to Saline Lock [OM.PC] Routine Medication Administration Instruction [OM.PC] Routine Peripheral IV Discontinue [OM.PC] Routine Peripheral IV Insertion Adult [OM.PC] Routine Saline Lock Insert [OM.PC] Routine Sequential Compression Device [OM.PC] Per Unit Routine 03/23/18 Lunch Regular Diet [DIET] 03/24/18 09:00 Vit with Ca/FA/Iron [ Plus Iron] 1 each PO DAILY 03/24/18 09:58 Urinary Catheter Removal [RC] Per Unit Routine 03/24/18 10:00 Ibuprofen [Motrin] 600 mg PO Q6H PRN - Plan Plan:: Plan induction and delivery. Patient seen and examined and discussed with student.
--- NOTE | 2018-03-24 08:21 | PCM48HPAN ---
Post Anesthesia Note - EVALUATION WITHIN 48HRS OF ANESTHETIC Vital Signs in Normal Range: Yes Patient Participated in Evaluation: Yes Respiratory Function Stable: Yes Airway Patent: Yes Cardiovascular Function Stable: Yes Hydration Status Stable: Yes Pain Control Satisfactory: Yes Nausea and Vomiting Control Satisfactory: Yes Mental Status Recovered: Yes (no complaints) Pulse Rate: 74 Resp Rate: 16 Temperature: 98.2 F Blood Pressure: 130/81
[2018-03-24] MEDS: Prenatal Multivitamin with Calcium/Folic Acid/Iron Tab PO SCH (09:21)
[2018-03-24] MEDS: Ibuprofen 600 MG Tab PO PRN (14:34)
[2018-03-25] MEDS: Ibuprofen 600 MG Tab PO PRN ×2 (00:51→10:27)
--- NOTE | 2018-03-25 08:41 | PCM.DCSUM1 ---
Discharge Summary - Hospital Course Free Text/Narrative:: [facility], [place] [facility] Post-Op/Procedure Note Patient Name: JET KHAN Date of : 88 Patient Status: Inpatient Attending Provider: Xavier Cárdenas Date: 03/23/18 09:51 Initialization Date: 03/23/18 09:51 - General Post-Op/Procedure Note Date of Surgery/Procedure: 03/23/18 Operative Procedure(s): Primary low segment transverse Pre Op Diagnosis: Breech presentation attempted external version is not successful Post-Op Diagnosis: Same Anesthesia Technique: Spinal Primary Surgeon: Xavier Cárdenas Secondary Surgeon: Micheal Oliva Anesthesia Provider: Jessie Vásquez Medical Director: Yves Gonzales (PAS) Reason Medical Director Was Necessary: Assist with surgery and delivery, decrease comorbidity and mortality. Role of Medical Director: Assist with surgery and delivery, decrease comorbidity and mortality. Fluid Replacement, Intraop: 2,000 Output, Urine Amount: 100 EBL in mLs: 250 Drain/Tube Comments:: Masters Complications: None Condition: Good Free Text/Narrative:: Intake & Output 03/22/18 03/23/18 03/23/18 22:59 06:59 14:59 Intake Total 0 Output Total 0 Balance 0 Patient was transported to the operating room and placed under spinal anesthesia in supine position with wedge under right hip and right flank. SCDs in place and functioning prior surgery. 2 g of Ancef given intravenously prior surgery. Timeout performed. Patient was paired and draped in a sterile fashion. Adequate level of anesthesia was confirmed. Patient's was brought to the operating room. A low segment transverse was performed with the Pfannenstiel incision carried sharp section to into the anterior fascia peritoneal cavity was entered without difficulty bladder flap created pushed caudad low segment transverse performed. Breech presentation was delivered left sacrum anterior care for delivering the lower extremities flexing as needed and the upper extremities was then delivered left followed by right upper extremity and the head was delivered without difficulty. The female liveborn delivered at 0912 hrs. on Thursday03/23/18 Apgars 9/[address] Hagen cared for the . Weight 3400 g 7 lbs. 8 oz. Cord blood was collected from the three-vessel cord placenta was removed manually endometrial cavity inspected remnants of membranes removed cervical patency assured and the sponge needle pack instrument count correct times one and the uterine incision closed with running locking suture of 0 Monocryl. Second layer closure with 0 Monocryl modified Lembert horizontal imbricating suture. Sponge needle pack instrument count correct 2 both tubes and ovaries were normal clot screen from the gutters and cul-de-sac, uterus placed into the abdominal cavity. Abdominal cavity closed in layers with #1 PDS for the anterior fascia. The subcutaneous tissue approximated with 0 Monocryl times 3 interrupted sutures and the skin was closed with subcuticular suture of 4-0 Monocryl Nikita needle. Dermabond Preneo applied. Clots cleaned from the vagina at the end procedure. No blood transfusions required not anticipated. Patient transported postanesthesia care unit in satisfactory condition. [facility], [place] Post-Op/Procedure Note Patient Name: JET KHAN Date of : 88 Patient Status: Inpatient Attending Provider: Xavier Crádenas Date: 03/23/18 08:20 Initialization Date: 03/23/18 08:20 Addendum entered and electronically signed by Micheal Oliva MD 03/23/18 08:40: Of note, the patient was given terbutaline 250 mcg subcutaneous prior to attempt of the version secondary to contractions every 2-3 minutes. We waited approximately 3 minutes for the medication to take effect when she started to notice relaxation of the uterus as well as mild racing of her heart. Original Note: - General Post-Op/Procedure Note Date of Surgery/Procedure: 03/23/18 Operative Procedure(s): Attempted external cephalic version, unsuccessful Findings: in complete breech position with spine along maternal left side of the abdomen and had been right upper quadrant of the uterus. Minimal amount of fluid around the infant. Pre Op Diagnosis: Complete breech position desires attempt of external cephalic version Post-Op Diagnosis: Attempted external cephalic version that was unsuccessful, plan for primary section Primary Surgeon: Micheal Oliva Pathology: None Fluid Replacement, Intraop: 0 Output, Urine Amount: 0 EBL in mLs: 0 Complications: None Condition: Good Free Text/Narrative:: Procedure in detail: Patient was seen on labor and delivery in room #29 (L&D room #1) after her initial provider checked her and was found to be in breech position. He had confirmed this with use of ultrasound. On my exam, ultrasound was then again completed and was found to be in complete breech position with pelvis Lowe in the maternal pelvis with spine facing up and to the maternal left and had in the upper right quadrant of the uterus. There is minimal amount of fluid noted. Patient had had a reactive NST prior to the procedure. Reviewed the risks, benefits and alternatives of the procedure and consents were signed for external cephalic version and possible section. Patient was laid in dorsal supine position. The heart was evaluated and noted to have a normal heart rate in the 130s. Attempt was then made to lift the pelvis out of the maternal pelvis and apply pressure to the head to turn the infant in a counterclockwise forward somersault fashion. This was attempted for approximately 1-1.5 minutes with minimal success. The heart was then evaluated and noted to have good heart tones in the 120s to 130s. Attempt was then made for a reverse somersault in a clockwise fashion by again lifting the pelvis out of the maternal pelvis and applying pressure on the head. This is again attempted for approximately 1-1.5 minutes. The head was able to be moved to the left uterine fundus. The heart was evaluated and noted to be in the 90s to 100s and was allowed to recover for approximately 1 minute. Attempt was then made for a counterclockwise forward somersault roll by lifting the pelvis out of the maternal pelvis and applying pressure to the head. This was attempted over 3 separate attempts with 1-1.5 minutes for each attempt. After each attempts the heart was evaluated and noted to be within normal limits in the 120s to 130s. After approximately 10-15 minutes of attempted version discussion was had with patient regarding unlikelihood of success and she desired to stop the external cephalic version and proceed with primary section. Patient was prepped for section. Please see that note for full procedure. Micheal Oliva M.D. 8:32 AM 03/23/2018 HPI Initial Comments: [facility], [place] [facility] Post-Op/Procedure Note Patient Name: JET KHAN Date of : 88 Patient Status: Inpatient Attending Provider: Xavier Cárdenas Date: 03/23/18 09:51 Initialization Date: 03/23/18 09:51 - General Post-Op/Procedure Note Date of Surgery/Procedure: 03/23/18 Operative Procedure(s): Primary low segment transverse Pre Op Diagnosis: Breech presentation attempted external version is not successful Post-Op Diagnosis: Same Anesthesia Technique: Spinal Primary Surgeon: Xavier Cárdenas Secondary Surgeon: Micheal Oliva Anesthesia Provider: Jessie Vásquez Medical Director: Yves Gonzales (ANNALEE) Reason Medical Director Was Necessary: Assist with surgery and delivery, decrease comorbidity and mortality. Role of Medical Director: Assist with surgery and delivery, decrease comorbidity and mortality. Fluid Replacement, Intraop: 2,000 Output, Urine Amount: 100 EBL in mLs: 250 Drain/Tube Comments:: Masters Complications: None Condition: Good Free Text/Narrative:: Intake & Output 03/22/18 03/23/18 03/23/18 22:59 06:59 14:59 Intake Total 0 Output Total 0 Balance 0 Patient was transported to the operating room and placed under spinal anesthesia in supine position with wedge under right hip and right flank. SCDs in place and functioning prior surgery. 2 g of Ancef given intravenously prior surgery. Timeout performed. Patient was paired and draped in a sterile fashion. Adequate level of anesthesia was confirmed. Patient's was brought to the operating room. A low segment transverse was performed with the Pfannenstiel incision carried sharp section to into the anterior fascia peritoneal cavity was entered without difficulty bladder flap created pushed caudad low segment transverse performed. Breech presentation was delivered left sacrum anterior care for delivering the lower extremities flexing as needed and the upper extremities was then delivered left followed by right upper extremity and the head was delivered without difficulty. The female liveborn delivered at 0912 hrs. on Thursday03/23/18 Apgars 9/[address] Hagen cared for the . Weight 3400 g 7 lbs. 8 oz. Cord blood was collected from the three-vessel cord placenta was removed manually endometrial cavity inspected remnants of membranes removed cervical patency assured and the sponge needle pack instrument count correct times one and the uterine incision closed with running locking suture of 0 Monocryl. Second layer closure with 0 Monocryl modified Lembert horizontal imbricating suture. Sponge needle pack instrument count correct 2 both tubes and ovaries were normal clot screen from the gutters and cul-de-sac, uterus placed into the abdominal cavity. Abdominal cavity closed in layers with #1 PDS for the anterior fascia. The subcutaneous tissue approximated with 0 Monocryl times 3 interrupted sutures and the skin was closed with subcuticular suture of 4-0 Monocryl Nikita needle. Dermabond Preneo applied. Clots cleaned from the vagina at the end procedure. No blood transfusions required not anticipated. Patient transported postanesthesia care unit in satisfactory condition. [facility], [place] [facility] Post-Op/Procedure Note Patient Name: JET KHAN Date of : 88 Patient Status: Inpatient Attending Provider: Xavier Cárdenas Date: 03/23/18 08:20 Initialization Date: 03/23/18 08:20 Addendum entered and electronically signed by Micheal Oliva MD 03/23/18 08:40: Of note, the patient was given terbutaline 250 mcg subcutaneous prior to attempt of the version secondary to contractions every 2-3 minutes. We waited approximately 3 minutes for the medication to take effect when she started to notice relaxation of the uterus as well as mild racing of her heart. Original Note: - General Post-Op/Procedure Note Date of Surgery/Procedure: 03/23/18 Operative Procedure(s): Attempted external cephalic version, unsuccessful Findings: Infant in complete breech position with spine along maternal left side of the abdomen and had been right upper quadrant of the uterus. Minimal amount of fluid around the infant. Pre Op Diagnosis: Complete breech position desires attempt of external cephalic version Post-Op Diagnosis: Attempted external cephalic version that was unsuccessful, plan for primary section Primary Surgeon: Micheal Oliva Pathology: None Fluid Replacement, Intraop: 0 Output, Urine Amount: 0 EBL in mLs: 0 Complications: None Condition: Good Free Text/Narrative:: Procedure in detail: Patient was seen on labor and delivery in room #29 (L&D room #1) after her initial provider checked her and was found to be in breech position. He had confirmed this with use of ultrasound. On my exam, ultrasound was then again completed and was found to be in complete breech position with pelvis Lowe in the maternal pelvis with spine facing up and to the maternal left and had in the upper right quadrant of the uterus. There is minimal amount of fluid noted. Patient had had a reactive NST prior to the procedure. Reviewed the risks, benefits and alternatives of the procedure and consents were signed for external cephalic version and possible section. Patient was laid in dorsal supine position. The heart was evaluated and noted to have a normal heart rate in the 130s. Attempt was then made to lift the pelvis out of the maternal pelvis and apply pressure to the head to turn the in a counterclockwise forward somersault fashion. This was attempted for approximately 1-1.5 minutes with minimal success. The heart was then evaluated and noted to have good heart tones in the 120s to 130s. Attempt was then made for a reverse somersault in a clockwise fashion by again lifting the pelvis out of the maternal pelvis and applying pressure on the head. This is again attempted for approximately 1-1.5 minutes. The head was able to be moved to the left uterine fundus. The heart was evaluated and noted to be in the 90s to 100s and was allowed to recover for approximately 1 minute. Attempt was then made for a counterclockwise forward somersault roll by lifting the pelvis out of the maternal pelvis and applying pressure to the head. This was attempted over 3 separate attempts with 1-1.5 minutes for each attempt. After each attempts the heart was evaluated and noted to be within normal limits in the 120s to 130s. After approximately 10-15 minutes of attempted version discussion was had with patient regarding unlikelihood of success and she desired to stop the external cephalic version and proceed with primary section. Patient was prepped for section. Please see that note for full procedure. Micheal Oliva M.D. 8:32 AM 03/23/2018 Brief History: [facility], [place] [facility] . Post-Op/Procedure Note. Patient Name: JET KHAN RAMONALedical Record Number: [id number]. Date of : Patient Status: Inpatient. Attending Provider: Xavier Cárdenasount Number: [id number]. Date: 03/23/18 09:51Initialization Date: 03/23/18 09:51. - General Post-Op/Procedure Note. Date of Surgery/Procedure: 03/23/18. Operative Procedure(s): Primary low segment transverse . Pre Op Diagnosis: Breech presentation attempted external version is not successful. Post-Op Diagnosis: Same. Anesthesia Technique: Spinal. Primary Surgeon: Xavier Cárdenas. Secondary Surgeon: Micheal Oliva. Anesthesia Provider: Jessie Vásquez. Medical Director: Yves Gonzales ([facility]). Reason Medical Director Was Necessary: Assist with surgery and delivery, decrease comorbidity and mortality. Role of Medical Director: Assist with surgery and delivery, decrease comorbidity and mortality. Fluid Replacement, Intraop: 2,000. Output, Urine Amount: 100. EBL in mLs: 250. Drain/Tube Comments:: Masters. Complications: None. Condition: Good. Free Text/Narrative:: Intake & Output. 03/22/1901// . 22:5906:[id number]:59. Intake Total0. Output Total0. Balance0. Patient was transported to the operating room and placed under spinal anesthesia in supine position with wedge under right hip and right flank. SCDs in place and functioning prior surgery. 2 g of Ancef given intravenously prior surgery. Timeout performed. Patient was paired and draped in a sterile fashion. Adequate level of anesthesia was confirmed. Patient's was brought to the operating room. A low segment transverse was performed with the Pfannenstiel incision carried sharp section to into the anterior fascia peritoneal cavity was entered without difficulty bladder flap created pushed caudad low segment transverse performed. Breech presentation was delivered left sacrum anterior care for delivering the lower extremities flexing as needed and the upper extremities was then delivered left followed by right upper extremity and the head was delivered without difficulty. The female liveborn delivered at 0912 hrs. on Thursday03/23/18 Apgars 9/[address] Hagen cared for the . Weight 3400 g 7 lbs. 8 oz. Cord blood was collected from the three-vessel cord placenta was removed manually endometrial cavity inspected remnants of membranes removed cervical patency assured and the sponge needle pack instrument count correct times one and the uterine incision closed with running locking suture of 0 Monocryl. Second layer closure with 0 Monocryl modified Lembert horizontal imbricating suture. Sponge needle pack instrument count correct 2 both tubes and ovaries were normal clot screen from the gutters and cul-de-sac, uterus placed into the abdominal cavity. Abdominal cavity closed in layers with #1 PDS for the anterior fascia. The subcutaneous tissue approximated with 0 Monocryl times 3 interrupted sutures and the skin was closed with subcuticular suture of 4-0 Monocryl Nikita needle. Dermabond Preneo applied. Clots cleaned from the vagina at the end procedure. No blood transfusions required not anticipated. Patient transported postanesthesia care unit in satisfactory condition. [facility], [place] [facility] . Post-Op/ Procedure Note. Patient Name: JET KHANALedical Record Number: [id number]. Date of : 88Patient Status: Inpatient. Attending Provider: Xavier áCrdenas Number: [id number]. Date: 03/23/18 08: 20Initialization Date: 03/23/18 08:20. Addendum entered and electronically signed by Micheal Oliva MD 03/23/18 08:40: Of note, the patient was given terbutaline 250 mcg subcutaneous prior to attempt of the version secondary to contractions every 2-3 minutes. We waited approximately 3 minutes for the medication to take effect when she started to notice relaxation of the uterus as well as mild racing of her heart. Original Note: - General Post-Op/ Procedure Note. Date of Surgery/Procedure: 03/23/18. Operative Procedure(s): Attempted external cephalic version, unsuccessful. Findings: in complete breech position with spine along maternal left side of the abdomen and had been right upper quadrant of the uterus. Minimal amount of fluid around the . Pre Op Diagnosis: Complete breech position desires attempt of external cephalic version. Post-Op Diagnosis: Attempted external cephalic version that was unsuccessful, plan for primary section. Primary Surgeon: Micheal Oliva. Pathology: None. Fluid Replacement, Intraop: 0. Output, Urine Amount: 0. EBL in mLs: 0. Complications: None. Condition: Good. Free Text/Narrative:: Procedure in detail: Patient was seen on labor and delivery in room #29 (L&D room #1) after her initial provider checked her and was found to be in breech position. He had confirmed this with use of ultrasound. On my exam, ultrasound was then again completed and was found to be in complete breech position with pelvis Lowe in the maternal pelvis with spine facing up and to the maternal left and had in the upper right quadrant of the uterus. There is minimal amount of fluid noted. Patient had had a reactive NST prior to the procedure. Reviewed the risks, benefits and alternatives of the procedure and consents were signed for external cephalic version and possible section. Patient was laid in dorsal supine position. The heart was evaluated and noted to have a normal heart rate in the 130s. Attempt was then made to lift the pelvis out of the maternal pelvis and apply pressure to the head to turn the infant in a counterclockwise forward somersault fashion. This was attempted for approximately 1-1.5 minutes with minimal success. The heart was then evaluated and noted to have good heart tones in the 120s to 130s. Attempt was then made for a reverse somersault in a clockwise fashion by again lifting the pelvis out of the maternal pelvis and applying pressure on the head. This is again attempted for approximately 1-1.5 minutes. The head was able to be moved to the left uterine fundus. The heart was evaluated and noted to be in the 90s to 100s and was allowed to recover for approximately 1 minute. Attempt was then made for a counterclockwise forward somersault roll by lifting the pelvis out of the maternal pelvis and applying pressure to the head. This was attempted over 3 separate attempts with 1-1.5 minutes for each attempt. After each attempts the heart was evaluated and noted to be within normal limits in the 120s to 130s. After approximately 10-15 minutes of attempted version discussion was had with patient regarding unlikelihood of success and she desired to stop the external cephalic version and proceed with primary section. Patient was prepped for section. Please see that note for full procedure. Micheal Oliva M.D. 8:32 AM. 03/23/2018 Diagnosis: Stroke: No - Discharge Data Discharge Date: 03/25/18 Discharge Disposition: Home, Self-Care 01 Condition: Good - Discharge Diagnosis/Problem(s) (1) 40 weeks gestation of SNOMED Code(s): 29310516 ICD Code: Z3A.40 - 40 WEEKS GESTATION OF Status: Acute Current Visit: Yes (2) delivery indicated due to breech presentation SNOMED Code(s): 609211366, 171677291 ICD Code: O32.1XX0 - MATERNAL CARE FOR BREECH PRESENTATION, UNSP Status: Acute Current Visit: Yes (3) Breech presentation SNOMED Code(s): 1924727 ICD Code: O32.1XX0 - MATERNAL CARE FOR BREECH PRESENTATION, UNSP Status: Acute Current Visit: Yes Qualifiers: Fetus number: single or unspecified fetus Qualified Code(s): O32.1XX0 - Maternal care for breech presentation, not applicable or unspecified - Patient Summary/Data Operative Procedure(s) Performed: Primary low segment transverse Complications: None Consults: None Hospital Course: Uneventful - Patient Instructions Diet: Usual Diet as Tolerated Driving: Do Not Drive (2 weeks) Showering/Bathing: May Shower, No Tub Bathing/Swimming (I'm 6 weeks) Wound/Incision Care: Keep Operative Site/Wound Site Clean and Dry Notify Provider of: Fever, Increased Pain, Swelling and Redness, Drainage, Nausea and/or Vomiting - Discharge Plan *PRESCRIPTION DRUG MONITORING PROGRAM REVIEWED*: Not Applicable *COPY OF PRESCRIPTION DRUG MONITORING REPORT IN PATIENT JAYDEN: Not Applicable Home Medications: Home Meds Cetirizine [ZyrTEC] 10 mg PO DAILY PRN 04/09/17 [History] Fluticasone Propionate [Flonase] 1 spray NASBOTH ASDIRECTED PRN 04/09/17 [ History] Vits #93/Iron Fum/FA [ Formula Tablet] 1 tab PO DAILY 04/09/17 [History] Ibuprofen [Motrin] 600 mg PO Q6H PRN #50 tab 04/10/17 [Rx] Acetaminophen [Tylenol] 650 mg PO Q6H PRN tablet 03/25/18 [Rx] Ibuprofen [Motrin] 600 mg PO Q6H PRN tablet 03/25/18 [Rx] Lanolin [Lansinoh HPA] 1 applic TOP ASDIRECTED PRN tube 03/25/18 [Rx] Referrals: Xavier Cárdenas MD [Primary Care Provider] - (2 weeks) - Discharge Summary/Plan Comment DC Time >30 min.: No - Patient Data Vitals - Most Recent: Last Vital Signs Temp 98.1 F 03/25/18 07:50 Pulse 70 03/25/18 07:50 Resp 16 03/25/18 07:50 BP 119/86 03/25/18 07:50 Pulse Ox 100 03/25/18 07:50 Weight - Most Recent: 187 lb 6.4 oz Med Orders - Current: Current Medications Acetaminophen (Tylenol) 650 mg PO Q4H PRN PRN Reason: mild pain or fever Diphenhydramine HCl (Benadryl) 25 mg IVPUSH Q6H PRN PRN Reason: Itching or Nausea Docusate Sodium (Colace) 100 mg PO Q12H PRN PRN Reason: Constipation Emollient Ointment (Lansinoh Hpa) 0 gm TOP ASDIRECTED PRN PRN Reason: Sore Nipples Ephedrine Sulfate (Ephedrine Sulfate) 5 mg IVPUSH SEECOMMENT PRN PRN Reason: Other Ibuprofen (Motrin) 600 mg PO Q6H PRN PRN Reason: mild pain or fever Last Admin: 03/25/18 00:51 Dose: 600 mg Loratadine (Claritin) 10 mg PO DAILY PRN PRN Reason: allergic rhinitis Naloxone HCl (Narcan) 0.1 mg IVPUSH SEECOMMENT PRN PRN Reason: Respiratory Depression Ondansetron HCl (Zofran) 4 mg IV Q8H PRN PRN Reason: Nausea/Vomiting Oxycodone/Acetaminophen (Percocet 325-5 Mg) 1 tab PO Q4H PRN PRN Reason: Pain (moderate 4-6) Fluticasone Propionate 1 Mandan * *Ptom 0 each NASBOTH DAILY PRN PRN Reason: allergic rhinitis Prenat Multivit/Engine Lathe Set Up Operator/Iron/Folic Ac ( Plus Iron) 1 each PO DAILY ANTONIA Last Admin: 03/24/18 09:21 Dose: 1 each Sodium Chloride (Saline Flush) 10 ml FLUSH ASDIRECTED PRN PRN Reason: Keep Vein Open Discontinued Medications Bupivacaine HCl (Marcaine 0.5%) Confirm Administered Dose 30 ml .ROUTE .STK-MED ONE Stop: 03/23/18 08:20 Last Admin: 03/23/18 09:08 Dose: 20 ml Cefazolin Sodium (Ancef) Confirm Administered Dose 2 gm .ROUTE .STK-MED ONE Stop: 03/23/18 08:22 Citric Acid/Sodium Citrate (Bicitra Solution) 30 ml PO ONETIME ONE Stop: 03/23/18 08:23 Last Admin: 03/23/18 08:30 Dose: 30 ml Citric Acid/Sodium Citrate (Bicitra Solution) Confirm Administered Dose 30 ml .ROUTE .STK-MED ONE Stop: 03/23/18 08:28 Last Admin: 03/23/18 11:29 Dose: Not Given Diphenhydramine HCl (Benadryl) 25 mg IVPUSH Q6H PRN PRN Reason: Itching Diphenhydramine HCl (Benadryl) 25 mg IVPUSH Q6H PRN PRN Reason: Pruritis Stop: 03/23/18 11:30 Ephedrine Sulfate (Ephedrine Sulfate) 5 mg IVPUSH ASDIRECTED PRN PRN Reason: HYPOTENTSION Ephedrine Sulfate (Ephedrine Sulfate) 5 mg IVPUSH ASDIRECTED PRN PRN Reason: Hypotension Stop: 03/23/18 11:30 Fentanyl (Sublimaze) 100 mcg EPIDUR Q3H PRN PRN Reason: Pain Fentanyl/Bupivacaine HCl ([id number]-[id number]-Yt 2 Mcg/Ml-0.125%) 100 ml EP ASDIRECTED ANTONIA Lactated Ringer's (Ringers, Lactated) 1,000 mls @ 40 mls/hr IV ASDIRECTED ANTONIA Oxytocin/Lactated Ringer's (Pitocin In Lr 10 Units/1,000 Ml) 10 unit in 1,000 mls @ 12 mls/hr IV TITRATE ANTONIA; Protocol Lactated Ringer's (Ringers, Lactated) Confirm Administered Dose 2,000 mls @ as directed .ROUTE .STK-MED ONE Stop: 03/23/18 08:22 Cefazolin Sodium/Dextrose 2 gm (/ Premix) 50 mls @ 100 mls/hr IV ONETIME ONE Stop: 03/23/18 08:52 Last Admin: 03/23/18 11:29 Dose: Not Given Oxytocin/Lactated Ringer's (Pitocin In Lr 20 Units/1,000 Ml) 20 unit in 1,000 mls @ 1,500 mls/hr IV ASDIRECTED [facility] Dextrose/Lactated Ringer's (Dextrose 5%-Lactated Ringers) 1,000 mls @ 125 mls/ hr IV ASDIRECTED [facility] Stop: 03/23/18 18:55 Last Admin: 03/23/18 12:17 Dose: 125 mls/hr Ketorolac Tromethamine (Toradol) Confirm Administered Dose 30 mg .ROUTE .STK- MED ONE Stop: 03/23/18 08:22 Ketorolac Tromethamine (Toradol) 30 mg IVPUSH Q6H [facility] Stop: 03/24/18 04:01 Last Admin: 03/24/18 04:20 Dose: 30 mg Meperidine HCl (Meperidine) 12.5 mg IVPUSH ONETIME PRN PRN Reason: Shivering Stop: 03/23/18 11:30 Metoclopramide HCl (Reglan) 10 mg IVPUSH ONETIME ONE Stop: 03/23/18 08:22 Last Admin: 03/23/18 08:30 Dose: 10 mg Metoclopramide HCl (Reglan) Confirm Administered Dose 10 mg .ROUTE .STK-MED ONE Stop: 03/23/18 08:28 Last Admin: 03/23/18 11:29 Dose: Not Given Misoprostol (Cytotec) 25 mcg VAG ONETIME ONE Stop: 03/22/18 20:01 Last Admin: 03/22/18 20:12 Dose: 25 mcg Misoprostol (Cytotec) 50 mcg VAG Q4H PRN PRN Reason: cervical ripening Misoprostol (Cytotec) 50 mcg VAG Q4H PRN PRN Reason: cervical ripening Misoprostol (Cytotec) 50 mcg VAG Q4H PRN PRN Reason: cervical ripening Last Admin: 03/23/18 04:39 Dose: 50 mcg Morphine Sulfate (Duramorph Pf) Confirm Administered Dose 1 mg .ROUTE .STK-MED ONE Stop: 03/23/18 08:28 Nalbuphine HCl (Nubain) 5 mg IVPUSH ONETIME PRN PRN Reason: Puritis Stop: 03/23/18 11:30 Ondansetron HCl (Zofran) Confirm Administered Dose 4 mg .ROUTE .STK-MED ONE Stop: 03/23/18 08:22 Ondansetron HCl (Zofran) 4 mg IVPUSH ONETIME PRN PRN Reason: Nausea/Vomiting Stop: 03/23/18 11:30 Oxytocin (Pitocin) Confirm Administered Dose 20 unit .ROUTE .STK-MED ONE Stop: 03/23/18 08:22 Phenylephrine HCl (Phenylephrine In Ns 100 Mcg/Ml) Confirm Administered Dose 1 mg .ROUTE .STRoom-MED ONE Stop: 03/23/18 09:33 Sodium Chloride (Saline Flush) 10 ml FLUSH ASDIRECTED PRN PRN Reason: Keep Vein Open Terbutaline Sulfate (Brethine) Confirm Administered Dose 1 mg .ROUTE .STRoom-MED ONE Stop: 03/23/18 07:56 Last Admin: 03/23/18 07:59 Dose: 1 mg
[2018-03-25] MEDS: Prenatal Multivitamin with Calcium/Folic Acid/Iron Tab PO SCH (10:27)
== END 2018-03-25 10:32 | disposition home or self-care (01) | DRG 787 ==
LOC: JD.OB 09:12 → OBSVTOIN 03-23 09:12 → JD.OB 03-23 09:13 → EDSTATUS 03-23 18:53
PROVIDERS: ADMIT Obstetrics & Gynecology; ATTEND Obstetrics & Gynecology
PROC: 6A550ZT Pheresis of Cord Blood Stem Cells, Single (ICD-10-PCS; principal; 2018-03-23)
PROC: 10D00Z1 Extraction of Products of Conception, Low, Open Approach (ICD-10-PCS; principal; 2018-03-23)
PROC: 10S0XZZ Reposition Products of Conception, External Approach (ICD-10-PCS; 2018-03-23)
DX: O32.1XX0 Maternal care for breech presentation, not applicable or unspecified (principal); O98.32 Other infections with a predominantly sexual mode of transmission complicating childbirth; Z37.0 Single live birth; O48.0 Post-term pregnancy; Z3A.40 40 weeks gestation of pregnancy; O99.02 Anemia complicating childbirth; D64.9 Anemia, unspecified; A63.0 Anogenital (venereal) warts; O99.62 Diseases of the digestive system complicating childbirth; K59.09 Other constipation; O99.52 Diseases of the respiratory system complicating childbirth; J30.9 Allergic rhinitis, unspecified
CPT/HCPCS: 01961; 36415; 59025; 85025; 85027; 86592; 86850; 86900; 86901; A9270-GY; J0690; J1885; J2274; J2370; J2405; J2590; J2765; J3105; J3490; J7042; J7120

== ENCOUNTER 2021-12-29 23:29 | Inpatient (IN) | payer BC ==
[2021-12-30] MEDS ORDERED: Citric Acid/Sodium Citrate Solution 30 ML Cup ONE (00:08)
[2021-12-30] MEDS ORDERED: ceFAZolin 2 GM in Sodium Chloride 0.9% 50 ML IV ONE (00:08)
[2021-12-30] MEDS ORDERED: Sodium Chloride 0.9% 10 ML Syringe FLUSH PRN (00:08)
[2021-12-30] MEDS ORDERED: Metoclopramide 10 MG/2 ML SDV ONE (00:08)
[2021-12-30] MEDS ORDERED: Metoclopramide 10 MG/2 ML SDV IVPUSH ONE (00:08)
[2021-12-30] MEDS ORDERED: Citric Acid/Sodium Citrate Solution 30 ML Cup PO ONE (00:08)
[2021-12-30] MEDS ORDERED: Azithromycin 500 MG in Sodium Chloride 0.9% 250 ML IV ONE (00:14)
[2021-12-30] MEDS ORDERED: Oxytocin/Lactated Ringers 10 UNIT/1,000 ML BAG IV SCH ×2 (00:15→02:15)
[2021-12-30] MEDS: Lactated Ringers 1,000 ML IV SCH ×2 (00:20→00:55)
[2021-12-30] MEDS ORDERED: Bupivacaine 0.5% 30 ML SDV ONE (00:31)
[2021-12-30] MEDS ORDERED: Morphine PF 10 MG/10 ML SDV ONE (00:50)
[2021-12-30] MEDS ORDERED: ceFAZolin 2 GM Vial ONE (00:50)
[2021-12-30] MEDS ORDERED: Bupivacaine 0.75%/D5W 2 ML Amp ONE (00:50)
[2021-12-30] MEDS ORDERED: fentaNYL 100 MCG/2 ML SDV ONE (00:50)
[2021-12-30] MEDS ORDERED: Lactated Ringers 1,000 ML ONE (01:16)
[2021-12-30] MEDS ORDERED: Oxytocin 10 Units/1 ML SDV ONE (01:18)
[2021-12-30] MEDS ORDERED: Ondansetron 4 MG/2 ML SDV ONE (01:46)
[2021-12-30] MEDS ORDERED: Ketorolac 30 MG/ML SDV ONE (01:46)
[2021-12-30] MEDS ORDERED: Ondansetron 4 MG/2 ML SDV IVPUSH PRN (01:52)
[2021-12-30] MEDS ORDERED: diphenhydrAMINE 50 MG/ML SDV IVPUSH PRN ×2 (01:52→02:14)
[2021-12-30] MEDS ORDERED: fentaNYL 100 MCG/2 ML SDV IVPUSH PRN (01:52)
[2021-12-30] MEDS ORDERED: Naloxone 0.4 MG/ML SDV IVPUSH PRN (02:14)
[2021-12-30] MEDS ORDERED: Magnesium Hydroxide 400 MG/5 ML Susp 30 ML Cup PO PRN (02:14)
[2021-12-30] MEDS ORDERED: ePHEDrine 50 MG/ML SDV IVPUSH PRN (02:14)
[2021-12-30] MEDS ORDERED: Acetaminophen/oxyCODONE 325-5 MG Tab PO PRN ×2 (02:14)
[2021-12-30] MEDS ORDERED: Dextrose 5%-Lactated Ringers 1,000 ML IV SCH (02:15)
[2021-12-30] MEDS: Ketorolac 30 MG/ML SDV IVPUSH SCH ×3 (08:31→20:14)
[2021-12-30] MEDS: Prenatal Multivitamin with Calcium/Folic Acid/Iron Tab PO SCH (08:31)
[2021-12-30] MEDS: Docusate Sodium 100 MG Cap PO SCH ×2 (08:31→20:14)
[2021-12-30] MEDS ORDERED: Sodium Chloride 0.9% 10 ML Syringe FLUSH SCH (09:00)
[2021-12-31] MEDS: Ibuprofen 600 MG Tab PO PRN ×4 (01:49→20:45)
[2021-12-31] MEDS: Prenatal Multivitamin with Calcium/Folic Acid/Iron Tab PO SCH (08:50)
[2021-12-31] MEDS: Docusate Sodium 100 MG Cap PO SCH (08:50)
[2022-01-01] MEDS: Docusate Sodium 100 MG Cap PO SCH (05:36)
[2022-01-01] MEDS: Ibuprofen 600 MG Tab PO PRN (05:40)
== END 2022-01-01 10:25 | disposition home or self-care (01) | DRG 540 ==
LOC: JD.OBCHECK 23:29 → JD.OB 23:35 → JD.OBCHECK 12-30 00:08
PROVIDERS: ADMIT Obstetrics & Gynecology; ATTEND Obstetrics & Gynecology
PROC: 10D00Z1 Extraction of Products of Conception, Low, Open Approach (ICD-10-PCS; principal; 2021-12-30)
DX: O32.1XX0 Maternal care for breech presentation, not applicable or unspecified (principal); Z3A.39 39 weeks gestation of pregnancy; Z37.0 Single live birth; O99.12 Other diseases of the blood and blood-forming organs and certain disorders involving the immune mechanism complicating childbirth; D69.6 Thrombocytopenia, unspecified; O34.211 Maternal care for low transverse scar from previous cesarean delivery
CPT/HCPCS: 36415; 59025; 84112; 85025; 86592; 86850; 86900; 86901; 94762; A9270-GY; J0456; J0690; J1885; J2274; J2405; J2590; J2765; J3010; J3490; J7050; J7120; J7121